=== PATIENT | male | born 1995 | race American Indian/Alaskan Native ===

== ENCOUNTER 2021-06-23 17:42 | Emergency (ER) | payer SELFPAY ==
[2021-06-23 17:52] VITALS: BP 117/70
--- NOTE | 2021-06-23 21:05 | Emergency Department Report ---
- General Chief complaint: Extremity Injury, Upper Stated complaint: PROPANE ON LEFT HAND Time Seen by Provider: 06/23/21 20:03 Source: patient Mode of arrival: Ambulatory Limitations: No Limitations - History of Present Illness Initial comments: 25-year-old male was at work on yesterday around 6 PM propane tank got onto his skin directly and resulted in a abrasion type burning m. He washes hands at night and reports some irritation to the hand with palpation. No fever, chills, sweats. No discharge. -: Gradual Tetanus Up to Date: yes Location: generalized Quality: dull Consistency: constant Improves with: none Worsens with: none Associated symptoms: denies other symptoms Treatments Prior to Arrival: none - Related Data Previous Rx's Medication Instructions Recorded Last Taken Type Mupirocin [Bactroban 2%] 1 applic TP TID #1 tube 06/23/21 Unknown Rx Allergies Allergy/AdvReac Type Severity Reaction Status Date / Time No Known Allergies Allergy Unverified 06/23/21 17:52 Abscess Boil HPI - HPI Chief Complaint: Extremity Injury, Upper Stated Complaint: PROPANE ON LEFT HAND Time Seen by Provider: 06/23/21 20:03 Home Medications: Previous Rx's Medication Instructions Recorded Last Taken Type Mupirocin [Bactroban 2%] 1 applic TP TID #1 tube 06/23/21 Unknown Rx Allergies/Adverse Reactions: Allergies Allergy/AdvReac Type Severity Reaction Status Date / Time No Known Allergies Allergy Unverified 06/23/21 17:52 ED Review of Systems ROS: Stated complaint: PROPANE ON LEFT HAND Other details as noted in HPI Comment: All other systems reviewed and negative ED Past Medical Hx - Medications Home Medications: Home Medications Medication Instructions Recorded Confirmed Last Taken Type Mupirocin [Bactroban 2%] 1 applic TP TID #1 tube 06/23/21 Unknown Rx ED Physical Exam - General Limitations: No Limitations General appearance: alert, in no apparent distress - Head Head exam: Present: atraumatic, normocephalic - Eye Eye exam: Present: normal appearance - ENT ENT exam: Present: mucous membranes moist - Neck Neck exam: Present: normal inspection - Respiratory Respiratory exam: Present: normal lung sounds bilaterally. Absent: respiratory distress - Cardiovascular Cardiovascular Exam: Present: regular rate, normal rhythm. Absent: systolic murmur, diastolic murmur, rubs, gallop - GI/Abdominal GI/Abdominal exam: Present: soft, normal bowel sounds - Rectal Rectal exam: Present: deferred - Extremities Exam Extremities exam: Present: normal inspection - Expanded Upper Extremity Exam Right Hand Wrist exam: Present: erythema Hand L/R Back: 1 - Some superficial dermatitis/burn to this region with no cellulitis or lymphangitis. No wound discharge. Cap refills are brisk. Pulses 2+ - Back Exam Back exam: Present: normal inspection - Neurological Exam Neurological exam: Present: alert, oriented X3 - Psychiatric Psychiatric exam: Present: normal affect, normal mood - Skin Skin exam: Present: warm, dry, intact, normal color. Absent: rash ED Course Vital Signs 06/23/21 17:43 Temperature 98.6 F Pulse Rate 73 Respiratory 16 Rate Blood Pressure 117/70 [Right] O2 Sat by Pulse 100 Oximetry Critical care attestation.: If time is entered above; I have spent that time in minutes in the direct care of this critically ill patient, excluding procedure time. ED Disposition Clinical Impression: Chemical dermatitis Disposition: 01 HOME / SELF CARE / HOMELESS Is pt being admited?: No Does the pt Need Aspirin: No Condition: Stable Instructions: Contact Dermatitis, [id number], Contact Dermatitis Additional Instructions: Please advise the potent propane to the skin causes some degree of frostbite. Please make sure that you have washed and irrigated the wound very well which which should have occurred at the time of impact over 24 hours ago. This point we do want to cover you with antimicrobials to limit the possibility of a wound infection still uses antibacterial ointment and wash with antibacterial soap. The wound is become irritated you may use a [id number] hydrocortisone Prescriptions: Mupirocin [Bactroban 2%] 1 applic TP TID #1 tube Referrals: [facility] [Provider Group] - 2-3 Days (Please follow-up for wound recheck in 2 to 3 days)
== END 2021-06-23 22:25 | disposition home or self-care (01) ==
LOC: ED 17:42
DX: L25.3 Unspecified contact dermatitis due to other chemical products (principal)
CPT/HCPCS: 99281